=== PATIENT | female | born 2000 | race Caucasian/White ===

== ENCOUNTER 2023-01-26 01:39 | Inpatient (IN) ==
[2023-01-26] MEDS ORDERED: VANCOMYCIN CONSULT ACTIVE PRN (03:15)
[2023-01-26] MEDS ORDERED: VANCOMYCIN HCL 1,500 MG in SODIUM CHLORIDE 0.9% 500 ML IV ONE (03:15)
[2023-01-26] MEDS ORDERED: PIPERACILLIN/TAZOBACTAM 4.5 GM/100 ML BAG IV ONE (03:15)
[2023-01-26 03:23] LABS: Basophils # (auto) 0.05 K/uL (0.00-0.20); Basophils % (auto) 0.6 %; Eosinophils # (auto) 0.36 K/uL (0.00-0.50); Eosinophils % (auto) 4.5 %; Hematocrit (blood only) 34.4 % (37.0-47.0); Hemoglobin 12.1 g/dl (12.0-16.0); Immature Granulocytes # (auto) 0.06 K/uL (0.01-0.20); Immature Granulocytes % (auto) 0.8 %; Lymphocytes # (auto) 3.59 K/uL (1.20-3.40); Lymphocytes % (auto) 45.1 %; Mean Corpuscular Hemoglobin 30.1 pg (25.0-34.0); Mean Corpuscular Hgb Conc 35.2 g/dL (32.0-36.0); Mean Corpuscular Volume 85.6 fL (80.0-100.0); Mean Platelet Volume 10.2 fL (9.4-12.4); Monocytes # (auto) 0.71 K/uL (0.11-0.59); Monocytes % (auto) 8.9 %; Neutrophils # (auto) 3.19 K/uL (1.40-6.50); Neutrophils % (auto) 40.1 %; Platelet Count 322 K/uL (130-400); RDW Coefficient of Variation 13.2 % (11.5-14.5); RDW Standard Deviation 41.4 fL (36.4-46.3); Red Blood Count 4.02 M/uL (4.20-5.40); White Blood Count 7.96 K/ul (4.8-10.8)
[2023-01-26 03:42] LABS: Albumin Level 3.2 gm/dl (3.4-5.0); BUN Creatinine Ratio 8.8 (10-20); Bilirubin Direct 0.1 mg/dl (0-0.2); Bilirubin,Total 0.4 mg/dl (0.2-1.0); Calcium 8.7 mg/dl (8.6-10.3); Creatinine Clr Calc Pharmacy 127.3 ml/min; Est GFR (African American) 144.9 ml/min; Magnesium 2.1 mg/dl (1.7-2.4); Potassium 3.5 mmol/L (3.5-5.1); Total Protein 6.1 gm/dl (6.0-8.3)
[2023-01-26 03:47] LABS: Procalcitonin 0.17 ng/ml (0-0.5)
[2023-01-26 03:53] LABS: Lyme Ab IgG w/WB Rflx Negative (Negative); Lyme Ab IgM w/WB Rflx Negative (Negative)
[2023-01-26] MEDS ORDERED: OPTIRAY 320 100ml IV ONE (04:00)
[2023-01-26 04:39] LABS: Base Excess VBG -2.6 mEq/L; HCO3 VBG 20 mmol/L; Oxygen Saturation VBG 90.3 %; PCO2 VBG 29 mmHg (38-50); PO2 VBG 56 mmHg; pH VBG 7.45 (7.36-7.41)
--- NOTE | 2023-01-26 04:46 | History & Physical Report ---
Date of Service January 26, 2023 Assessment & Plan (1) Abscess of chest wall: Plan: 22 year old female w/ past history of T1 DM admitted for chest wall abscess persistent after 2 oral antibiotics. Abscess of chest wall: -CT w/ evidence of air and soft tissue edema at the R lateral chest wall. -WBC normal, vitals stable. -Patient failed 2 oral antibiotics for abscess at this time. -Given Vancomycin and Zosyn in the ER. -Culture of the pus from wound taken, will await culture results for narrowing antibiotic choice. -General surgery consulted, will appreciate recommendations. -Wound care nurse consulted. -Admit to med/surg B/l leg swelling: -Leg swelling after last admission s/p 5L fluid rehydration. -Most likely due to lymph edema. -CT A&P shows bladder measuring almost 10cm in size, patient lymphedema may be from compression from bladder. -Continue to monitor output, no need for fluid or diuresis at this time. -Will order BRYAN stockings T1DM: -Not compliant at times with insulin. -Glucose 395, anion gap 12. -She is on 40U long acting insulin at home. Continue while at the hospital. -SSI. -ACHS checks. Hyponatremia: -Sodium 131 on admission. -Corrected sodium 136-138. -Continue to monitor as glucose returns to normal range. F/E/N/GI: T1DM carb counter DVT Prophylaxis: Patient young, mobile, chemoprophylaxis not needed. Code status: Full Dispo: Med/surg. (2) Diabetes mellitus type 1: (3) Hyponatremia: (4) Localized swelling of both lower legs: History of Present Illness Chief Complaint: swelling, abscess Primary Care Provider: [facility] Nafisa is a 22 year old female w/ PmHx of T1DM coming to the ER for swelling of her lower extremities. Patient was previously here on Saturday for rhinovirus induced diarrhea as well as DKA. She also had this area of what was thought to be cellulitis for which she already had doxycycline treatment course. Over the course of the day her anion gap closed and she was sent home with Bactrim DS for 7 days for treatment of the affected area of skin infection. She states that her symptoms had mostly gone away except for persistence of the skin infection. She also had swelling in the lower extremities that developed after discharge. The swelling subsided but earlier today she had re-swelling of the lower extremities that made her worried. She had went out drinking prior to coming to the hospital. She denies any fevers, chills, shortness of breath, chest pain, urinary or bowel symptoms. Of note patient stated that the area of the chest wall abscess was at first a pimple in that area that she popped and had developed into what it is now. The area of skin infection did not get better after doxycycline nor Bactrim and has only gotten worse. Her partner in the room stated when the abscess was drained earlier the color of the pus was orange- whitish tinged. In the ER the site of skin infection was poked with a needle with pus and air leaking out, culture was taken. She was started on Vancomycin and Zosyn for the presumed abscess. CBC unremarkable, Na 131, anion gap 12, glucose 395, lactate 3.6, BNP 191, albumin 3.2. CT chest and abd/pelvis without read back yet but ~2.4cm pocket of air at the R lateral chest wall mid-axillary around the level of T7. CT A&P notable for bladder measuring almost 10cm in size. Allergies Allergy/AdvReac Type Severity Reaction Status Date / Time No Known Allergies Allergy Unverified 01/19/23 23:06 Home Medications Medication Instructions Recorded Confirmed Type insulin glargine 100 unit/mL 40 unit subcut HS 01/19/23 01/26/23 History subcutaneous solution (Lantus U-100 Insulin) insulin lispro 100 unit/mL 1 sliding scale dose subcut ACHS 01/19/23 01/26/23 History subcutaneous solution (Humalog U-100 Insulin) sulfamethoxazole 800 1 tab PO BID #14 tabs 01/20/23 01/26/23 Rx mg-trimethoprim 160 mg tablet (Bactrim DS) Past Med/Surg History Medical History Diabetes mellitus type 1 Surgical History No significant past surgical history Social History Smoking Status: Never smoker Second Hand Exposure: No; Do You Dip or Chew Tobacco: No; Tobacco Cessation Education Requested by Patient: No Hx Alcohol Use: Yes Alcohol type: beer, wine and hard liquor Hx Substance Use: No Preferred Language: Sinhala Communication Ability: Effective Ingot Stripper Required: No Beliefs That Will Affect Care: None Current Living Situation: Other Current Living Situation Comment: Roomates Other Information That Helps Us Care for You: No Feels Safe at Home: Yes Safety Concerns: Feels Safe At This Time Assistive Devices: None Review of Systems Review of Systems: as per HPI. Physical Exam 2 Constitutional: WD/WN, vitals as above Eyes: PERRL, conjunctivae normal, anicteric sclerae Respiratory: normal respiratory effort, lungs clear to auscultation Cardiovascular: Rate/Rhythm: regular rate and regular rhythm Heart Sounds: normal S1, normal S2 and + murmur (I/ holosystolic murmur best heard at left sternal border) Lower extremity non-pitting edema from the feet to the hips bilaterally. Chest (Breasts): Additional Comments: Area of 2x2 gauze light red to orange in color with adhesive on top overlying the R lateral midaxillary chest. Gastrointestinal (Abdomen): normal bowel sounds, soft, nontender, no hepatosplenomegaly Psychiatric: A+Ox3, euthymic affect Results & Data Results & Data Vital Signs (Past 12 Hours) Vital Signs Temp Pulse Resp BP Pulse Ox O2 Del Method 01/26/23 04:11 95 H 01/26/23 04:09 123/79 01/26/23 04:09 93 H 18 98 Room Air 01/26/23 01:46 36.9 C 98 H 20 148/93 H 98 Room Air Supervising Physician Co-Signing Physician Notes Attending addendum: I have physically seen this patient, have supervised the medical residents activities, and agree with the H&P unless as otherwise noted. Assessment and Plan: Abscess of chest wall- Status post drainage in the ED Follow culture and sensitivity Vancomycin IV per pharmacokinetic monitoring Zosyn 4.5 g IV every 8 hours Consult wound care nurse Consult general surgery Admit to medical surgical bed Diabetes mellitus- Glucose 395 on admission with anion gap 12 Noncompliant with insulin regimen Continue long-acting insulin and SSI as noted Bilateral lower extremity swelling- Differential including but not limited to: Lymphedema, compression of venous circulation in the pelvis, Partial obstruction of IVC Could consider ultrasound of lower abdomen and pelvis to assess IVC and iliac veins circulation if persistent Resident Activity Tracking Resident Involvement: Resident Care Provided Care Provided: Adult Hospital Medicine
--- NOTE | 2023-01-26 05:07 | Emergency Department Note ---
History of Present Illness General Chief complaint: Swelling/Edema to Extremity Stated complaint: SWOLLEN LEGS Time Seen by Provider: 01/26/23 02:15 History of Present Illness This is a 22-year-old female presenting to the emergency department for evaluation of bilateral lower extremity edema. The patient is a type I diabetic and was admitted to this facility 6 days ago for DKA/rhinovirus infection. Patient was given 5 L of normal saline during her hospitalization and was discharged home after her sugar normalized. Patient's weight at discharge was 65.4 kg. Patient states that the following few days she noticed that she was edematous and did urinate regularly. She states that her sugar has been well controlled, and that her leg edema decreased back to normal. Patient was feeling good enough that she went out with friends and drank alcohol this evening. When the patient got back home she went to change her clothes, and noticed that she was swollen again. On arrival to the ER her weight is 72.9 kg, a 7.5 kg increase in 5 days. The patient additionally has a lump on her left side chest wall. She has had this for some time, roughly 1 month, and has completed both doxycycline and Bactrim. This continues to increase in size and continues to cause her pain. She has not had fevers or chills. No chest pain other than directly where the lump on her chest is. She is otherwise eating and drinking and normal. She rates her discomfort a 7/10. Home Medications Medication Instructions Recorded Confirmed Type insulin glargine 100 unit/mL 40 unit subcut HS 01/19/23 01/26/23 History subcutaneous solution (Lantus U-100 Insulin) insulin lispro 100 unit/mL 1 sliding scale dose subcut ACHS 01/19/23 01/26/23 History subcutaneous solution (Humalog U-100 Insulin) sulfamethoxazole 800 1 tab PO BID #14 tabs 01/20/23 01/26/23 Rx mg-trimethoprim 160 mg tablet (Bactrim DS) Allergies Allergy/AdvReac Type Severity Reaction Status Date / Time No Known Allergies Allergy Unverified 01/19/23 23:06 Past Med/Surg History Medical History Diabetes mellitus type 1 Surgical History No significant past surgical history Social History Smoking Status: Never smoker Second Hand Exposure: No; Do You Dip or Chew Tobacco: No; Tobacco Cessation Education Requested by Patient: No Hx Alcohol Use: Yes Alcohol type: beer, wine and hard liquor Hx Substance Use: No Preferred Language: Uzbek Communication Ability: Effective Transportation Analyst Required: No Beliefs That Will Affect Care: None Current Living Situation: Other Current Living Situation Comment: Roomates Other Information That Helps Us Care for You: No Feels Safe at Home: Yes Safety Concerns: Feels Safe At This Time Assistive Devices: None Review of Systems A total of 10 systems reviewed and were otherwise negative Physical Exam Vital Signs Vital Signs - 24 hr 01/26/23 01:46 01/26/23 04:09 01/26/23 04:09 Temperature 36.9 C Temperature Source Temporal Artery Scan Pulse Rate 98 H 93 H Pulse Rhythm Regular Regular Pulse Strength Normal Respiratory Rate 20 18 Respiratory Effort / Characteristics Non-Labored Spontaneous Respiratory Depth Normal Blood Pressure 148/93 H 123/79 Blood Pressure Mean 111 93 Blood Pressure Position Sitting Pulse Oximetry 98 98 Oxygen Delivery Method Room Air Room Air Sepsis Recent Fever Within 48 Hours No Sepsis New/Unexplained Change in Mental Status N/A Sepsis Action Taken by Nursing No Action Required 01/26/23 04:11 Temperature Temperature Source Pulse Rate 95 H Pulse Rhythm Pulse Strength Respiratory Rate Respiratory Effort / Characteristics Respiratory Depth Blood Pressure Blood Pressure Mean Blood Pressure Position Pulse Oximetry Oxygen Delivery Method Sepsis Recent Fever Within 48 Hours Sepsis New/Unexplained Change in Mental Status Sepsis Action Taken by Nursing VITALS: Vitals are noted on the nurse's note and reviewed by myself. Vital signs stable. GENERAL: Well-developed, well-nourished, white female, who is pleasant and cooperative. HEAD: Normocephalic atraumatic. HEART: Regular rate and rhythm without murmurs gallops or rubs. LUNGS: Clear to auscultation bilaterally without wheezes, rales or rhonchi. No retractions or accessory muscle use. CHEST WALL: There is a roughly 4 x 3 ovoid area on the left side lateral chest wall consistent with abscess. This is roughly at the nipple line, but very lateral. This is not distinctly axillary or breast, but seems to be more chest wall in location. Area is tender on palpation. ABDOMEN: Positive normal bowel sounds x 4. Soft, nontender, without masses or organomegaly. No guarding or rebound tenderness. MUSCULOSKELETAL: Full range of motion in all extremities. No lower extremity edema noted. This is not pitting. NEURO: Patient was alert and oriented to person place and time. CN II through XII grossly intact. Procedures Abscess I/D Site: chest (Left lateral chest wall) Side (if applicable): left Sedation/analgesia: none Technique: other (Deroofing with 18-gauge needle) Amount of fluid expressed (mL): 75 Irrigation: No Packing used?: none Complications: other (Large amount of purulent material with AIR from abscess) Course Administered Medications Acetaminophen (Acetaminophen 325 Mg Tab) 650 mg PO Q4H PRN PRN Reason: pain/fever Stop: 02/25/23 09:52 Last Admin: 01/26/23 16:51 Dose: 650 mg Documented By: CEF Piperacillin Sod/Tazobactam (Sod 4.5 gm/ Dextrose) 100 mls @ 25 mls/hr IV Q8H [facility]; Protocol Stop: 02/02/23 10:29 Last Admin: 01/26/23 18:16 Dose: 25 mls/hr Documented By: Infusion: 01/26/23 15:24 Dose: 0 mls/hr Documented By: Admin: 01/26/23 11:50 Dose: 25 mls/hr Documented By: CEF Vancomycin HCl 1,000 mg/ (Sodium Chloride) 270 mls @ 200 mls/hr IV Q8H DONI Stop: 02/05/23 12:59 Last Infusion: 01/26/23 15:04 Dose: 0 mls/hr Documented By: Admin: 01/26/23 13:49 Dose: 200 mls/hr Documented By: CEF Insulin Aspart (Insulin Aspart Per Unit Charge) 0 units SC ACHS DONI Stop: 02/25/23 09:52 Last Admin: 01/26/23 17:03 Dose: 9 units Documented By: CEF Co-signed By: [facility] Admin: 01/26/23 12:19 Dose: 9 units Documented By: CEF Co-signed By: TYRONE Admin: 01/26/23 12:07 Dose: Not Given Documented By: CEF Co-signed By: SMMajo Discontinued Medications Vancomycin HCl 1,500 mg/ (Sodium Chloride) 530 mls @ 200 mls/hr IV NOW ONE Stop: 01/26/23 05:53 Last Admin: 01/26/23 04:44 Dose: 200 mls/hr Documented By: SEBAS Piperacillin Sod/Tazobactam Sod (Zosyn) 4.5 gm in 100 mls @ 200 mls/hr IV NOW ONE Stop: 01/26/23 03:44 Last Infusion: 01/26/23 05:19 Dose: 0 mls/hr Documented By: Admin: 01/26/23 04:47 Dose: 200 mls/hr Documented By: SEBAS Influenza Virus Vaccine Quadrival (Influenza Virus Quadrivalent Vaccine (Iiv4) 0.5 Ml Syr) 0.5 ml IM .ONCE ONE Stop: 01/26/23 10:20 Last Admin: 01/26/23 12:20 Dose: 0.5 ml Documented By: CEF Ioversol (Optiray 320 100ml) 87 ml IV ONCE ONE Stop: 01/26/23 04:01 Last Admin: 01/26/23 04:01 Dose: 87 ml Documented By: MOLLY Medical Decision Making Differential Diagnosis Differential diagnosis includes: Etiologies such as hypervolemia, sepsis, Sirs, cellulitis, abscess, osteomyelitis, MRSA infection, DVT, necrotizing fasciitis, dermatitis, drug eruption, as well as others were entertained Laboratory Data 01/26/23 02:57 01/26/23 02:57 Lab Results 01/26/23 01/26/23 01/26/23 Range/Units 02:57 02:57 02:57 WBC 7.96 (4.8-10.8) K/ul RBC 4.02 L (4.20-5.40) M/uL Hgb 12.1 (12.0-16.0) g/dl Hct 34.4 L (37.0-47.0) % MCV 85.6 (80.0-100.0) fL MCH 30.1 (25.0-34.0) pg MCHC 35.2 (32.0-36.0) g/dL RDW Std Deviation 41.4 (36.4-46.3) fL RDW Coeff of Shayla 13.2 (11.5-14.5) % Plt Count 322 (130-400) K/uL MPV 10.2 (9.4-12.4) fL Immature Gran % (Auto) 0.8 % Neut % (Auto) 40.1 % Lymph % (Auto) 45.1 % Gila % (Auto) 8.9 % Eos % (Auto) 4.5 % Baso % (Auto) 0.6 % Neut # (Auto) 3.19 (1.40-6.50) K/uL Lymph # (Auto) 3.59 H (1.20-3.40) K/uL Gila # (Auto) 0.71 H (0.11-0.59) K/uL Eos # (Auto) 0.36 (0.00-0.50) K/uL Baso # (Auto) 0.05 (0.00-0.20) K/uL Immature Gran # (Auto) 0.06 (0.01-0.20) K/uL VBG pH (7.36-7.41) VBG pCO2 (38-50) mmHg VBG pO2 mmHg VBG HCO3 mmol/L VBG O2 Saturation % VBG Base Excess mEq/L Sodium 131 L (136-145) mmol/L Potassium 3.5 (3.5-5.1) mmol/L Chloride 98 (98-107) mmol/L Carbon Dioxide 21 (21-32) mmol/L Anion Gap 12 H (3-11) BUN 6 (6-23) mg/dl Creatinine 0.68 (0.6-1.2) mg/dl Est Cr Clr Drug Dosing 127.3 ml/min Est GFR ( Amer) 144.9 ml/min Est GFR (Non-Af Amer) 125.0 ml/min BUN/Creatinine Ratio 8.8 L (10-20) Glucose 395 H* (70-99(Fasting)) mg/dl Lactate 3.6 H* (0.4-2.0) mmol/L Calcium 8.7 (8.6-10.3) mg/dl Magnesium 2.1 (1.7-2.4) mg/dl Total Bilirubin 0.4 (0.2-1.0) mg/dl Direct Bilirubin 0.1 (0-0.2) mg/dl AST 23 (13-39) U/L ALT 17 (7-52) U/L Alkaline Phosphatase 81 (34-104) U/L B-Natriuretic Peptide (0-100) pg/ml Total Protein 6.1 (6.0-8.3) gm/dl Albumin 3.2 L (3.4-5.0) gm/dl Procalcitonin (0-0.5) ng/ml Ethyl Alcohol mg/dL (<10.0) mg/dl Lyme Disease IgG Ab (Negative) Lyme Disease IgM Ab (Negative) 01/26/23 01/26/23 01/26/23 Range/Units 02:57 02:57 04:20 WBC (4.8-10.8) K/ul RBC (4.20-5.40) M/uL Hgb (12.0-16.0) g/dl Hct (37.0-47.0) % MCV (80.0-100.0) fL MCH (25.0-34.0) pg MCHC (32.0-36.0) g/dL RDW Std Deviation (36.4-46.3) fL RDW Coeff of Shayla (11.5-14.5) % Plt Count (130-400) K/uL MPV (9.4-12.4) fL Immature Gran % (Auto) % Neut % (Auto) % Lymph % (Auto) % Gila % (Auto) % Eos % (Auto) % Baso % (Auto) % Neut # (Auto) (1.40-6.50) K/uL Lymph # (Auto) (1.20-3.40) K/uL Gila # (Auto) (0.11-0.59) K/uL Eos # (Auto) (0.00-0.50) K/uL Baso # (Auto) (0.00-0.20) K/uL Immature Gran # (Auto) (0.01-0.20) K/uL VBG pH 7.45 H (7.36-7.41) VBG pCO2 29 L (38-50) mmHg VBG pO2 56 mmHg VBG HCO3 20 mmol/L VBG O2 Saturation 90.3 % VBG Base Excess -2.6 mEq/L Sodium (136-145) mmol/L Potassium (3.5-5.1) mmol/L Chloride (98-107) mmol/L Carbon Dioxide (21-32) mmol/L Anion Gap (3-11) BUN (6-23) mg/dl Creatinine (0.6-1.2) mg/dl Est Cr Clr Drug Dosing ml/min Est GFR ( Amer) ml/min Est GFR (Non-Af Amer) ml/min BUN/Creatinine Ratio (10-20) Glucose (70-99(Fasting)) mg/dl Lactate (0.4-2.0) mmol/L Calcium (8.6-10.3) mg/dl Magnesium (1.7-2.4) mg/dl Total Bilirubin (0.2-1.0) mg/dl Direct Bilirubin (0-0.2) mg/dl AST (13-39) U/L ALT (7-52) U/L Alkaline Phosphatase (34-104) U/L B-Natriuretic Peptide 191 H (0-100) pg/ml Total Protein (6.0-8.3) gm/dl Albumin (3.4-5.0) gm/dl Procalcitonin 0.17 (0-0.5) ng/ml Ethyl Alcohol mg/dL (<10.0) mg/dl Lyme Disease IgG Ab Negative (Negative) Lyme Disease IgM Ab Negative (Negative) 01/26/23 Range/Units 04:20 WBC (4.8-10.8) K/ul RBC (4.20-5.40) M/uL Hgb (12.0-16.0) g/dl Hct (37.0-47.0) % MCV (80.0-100.0) fL MCH (25.0-34.0) pg MCHC (32.0-36.0) g/dL RDW Std Deviation (36.4-46.3) fL RDW Coeff of Shayla (11.5-14.5) % Plt Count (130-400) K/uL MPV (9.4-12.4) fL Immature Gran % (Auto) % Neut % (Auto) % Lymph % (Auto) % Gila % (Auto) % Eos % (Auto) % Baso % (Auto) % Neut # (Auto) (1.40-6.50) K/uL Lymph # (Auto) (1.20-3.40) K/uL Gila # (Auto) (0.11-0.59) K/uL Eos # (Auto) (0.00-0.50) K/uL Baso # (Auto) (0.00-0.20) K/uL Immature Gran # (Auto) (0.01-0.20) K/uL VBG pH (7.36-7.41) VBG pCO2 (38-50) mmHg VBG pO2 mmHg VBG HCO3 mmol/L VBG O2 Saturation % VBG Base Excess mEq/L Sodium (136-145) mmol/L Potassium (3.5-5.1) mmol/L Chloride (98-107) mmol/L Carbon Dioxide (21-32) mmol/L Anion Gap (3-11) BUN (6-23) mg/dl Creatinine (0.6-1.2) mg/dl Est Cr Clr Drug Dosing ml/min Est GFR ( Amer) ml/min Est GFR (Non-Af Amer) ml/min BUN/Creatinine Ratio (10-20) Glucose (70-99(Fasting)) mg/dl Lactate (0.4-2.0) mmol/L Calcium (8.6-10.3) mg/dl Magnesium (1.7-2.4) mg/dl Total Bilirubin (0.2-1.0) mg/dl Direct Bilirubin (0-0.2) mg/dl AST (13-39) U/L ALT (7-52) U/L Alkaline Phosphatase (34-104) U/L B-Natriuretic Peptide (0-100) pg/ml Total Protein (6.0-8.3) gm/dl Albumin (3.4-5.0) gm/dl Procalcitonin (0-0.5) ng/ml Ethyl Alcohol mg/dL 19.8 H (<10.0) mg/dl Lyme Disease IgG Ab (Negative) Lyme Disease IgM Ab (Negative) Imaging Data Radiologist's Impression: Abdomen/Pelvis CT 01/26/23 03:14 CT abd pelvis IV con only CLINICAL HISTORY: b/l lower extremity edema TECHNIQUE: Helical axial images of the abdomen and pelvis were obtained and displayed. Automated dose lowering techniques and/or adjustment according to patient size were utilized for this exam. This exam was performed with intravenous contrast. COMPARISON: None available at the time of this dictation. FINDINGS: Lower chest: For findings above the diaphragm, please see CT chest performed same day. Liver: Unremarkable. No focal lesions are seen. Gallbladder and biliary tree: No calcified gallstones. Normal caliber wall. No intra- or extrahepatic biliary ductal dilation. Pancreas: Unremarkable, no focal lesions. Spleen: Unremarkable. Adrenals: Unremarkable. Kidneys and ureters: Unremarkable. Bladder: Unremarkable. Reproductive organs: Unremarkable. Bowel: Unremarkable. Lymph nodes Retroperitoneal: Unremarkable. Pelvic: Unremarkable. Mesenteric: Unremarkable. Peritoneum: Normal. Vessels: Unremarkable. Abdominal wall: Mild soft tissue edema is seen in the gluteal and thigh regions. Bones: Unremarkable. IMPRESSION: Mild soft tissue edema in the gluteal and thigh regions. Otherwise no acute abnormality is seen. ACT 112: Negative or not required by law. Electronically signed by: Gustabo Fay M.D. 01/26/2023 8:34 AM Chest X-Ray 01/26/23 03:15 XR chest 1V portable CLINICAL HISTORY: sepsis TECHNIQUE: Single frontal radiograph of the chest was obtained. Comparison: Comparison is made to chest radiograph 01/19/2023 FINDINGS: No lines and tubes are seen. The cardiomediastinal silhouette is normal. The lungs are clear. No evidence of pleural effusion or pneumothorax. IMPRESSION: No acute abnormalities and in particular no radiographic evidence of pneumonia. ACT 112: Negative or not required by law. Electronically signed by: Gustabo Fay M.D. 01/26/2023 6:[address] 01/26/23 03:30 CT chest diagnostic w con CLINICAL HISTORY: Left lat chest wall abscess s/p drained TECHNIQUE: Multidetector row helical CT of the chest was performed with intravenous contrast. Coronal and sagittal reformations were obtained. Automated dose lowering techniques and/or adjustment according to patient size were utilized for this exam. CT DOSE: 1236.62 mGy.cm Comparison: None available at the time of this dictation. FINDINGS: Lungs and pleura: Normal. Heart and pericardium: Heart size is normal. No pericardial effusion. Vessels: Unremarkable. Mediastinum and antonio: Unremarkable. Chest wall and lower neck: There is a 3.5 cm gas and fluid collection in the superficial left chest wall compatible with abscess. Abdomen: For findings below the diaphragm, please refer to CT of the abdomen dated the same. Bones: Degenerative changes in the thoracic spine. IMPRESSION: Left lateral chest gas and fluid collection compatible with abscess. Otherwise unremarkable. ACT 112: Negative or not required by law. Electronically signed by: Gustabo Fay M.D. 01/26/2023 8:11 AM ECG Data Attestation: I personally reviewed and interpreted this ECG as follows: Indication: + chest pain Additional Comments: Normal sinus rhythm @[address] elevation No previous ECGs available MDM Narrative Physical exam and history were performed. Nursing notes, EMR, and Medication List were personally reviewed. No social concerns were identified as barriers to patients care. Patient appears to have lower extremity edema bringing her to the ER. On examination she does have some nonpitting bilateral lower extremity edema. No obvious palpable cord identified on physical examination. The edema is the patient's primary concern, and based on her discharge weight from the hospital and her weight today, she has gained 7.5 kg in 5 days. This is likely all fluid retention. The patient is slightly tachycardic based on vitals. Otherwise her exam does reveal an abscess on the left side chest wall. She had a bedside ultrasound performed prior to her admission, that did not show any abscess, however today this is distinctly abscessed. I did discuss options of care with the patient at bedside. I did cleanse the abscess area with alcohol, and did deep groove the central plug with an 18-gauge needle. Upon removing the central plug, which was roughly 2.5 cm itself, a tremendous amount of purulent material was discharged from the new opening. Controlled with 4 x 4's and multiple chucks. Towards the end of the purulent drainage, which was cultured, there was a surprising amount of gas and air that was also expressed from the area. The amount of purulence and gas was much higher than my expectation. There is clinical concern for possible gas-forming infection, or possible communication into the intrathoracic cavity. IV access was established and labs were obtained. Case was discussed with my attending physician, Dr. Rizo. We did elect to perform CT scan of the chest to better differentiate her infection, as well as CT scan of the abdomen and pelvis to determine if this could be causing her lower extremity edema. Patient's blood work is as above and was reviewed. She does not have a sig nificantly elevated white blood cell count, gross anemia, bandemia, or significant electrolyte imbalance. Transaminases are not diagnostic. Patient's lactic is unfortunately elevated at 3.6 and blood cultures are pending. BNP is also elevated at 191, suggesting some amount of heart failure/fluid overload. Overall the patient does not appear well for discharge. I did speak with the hospitalist, Dr. Bowers, and we will hold fluids at the moment as the patient appears to be fluid overloaded. She was given vancomycin and Zosyn here in the ER. Please see the hospitalist dictation for further patient course, plan, and disposition. The chart was completed utilizing [employer] Speech Voice Recognition Software. Grammatical errors, random word insertions, pronoun errors, and incomplete sentences are an occasional consequence of this system due to software limitations, ambient noise, and hardware issues. Any formal questions or concerns about the content, text, or information contained within the body of this dictation should be directly addressed to the provider for clarification. . Impression & Plan Sepsis, Abscess of chest wall, Hyperglycemia due to type 1 diabetes mellitus Discharge Plan Visit Data Chief Complaint: Swelling/Edema to Extremity Stated Complaint: SWOLLEN LEGS ED Provider: Gladys Rizo ED Midlevel Provider: Landry Laird Discharge Problem: Sepsis, Abscess of chest wall, Hyperglycemia due to type 1 diabetes mellitus Patient Disposition: Admitted As Inpatient Discharge Instructions Interventions: ED Discharge Assessment Last Done: 01/26/23 09:30
--- NOTE | 2023-01-26 07:05 | Hospitalist Progress Note ---
Date of Service January 26, 2023 Assessment & Plan (1) Abscess of chest wall: (2) Diabetes mellitus type 1: (3) Hyponatremia: (4) Localized swelling of both lower legs: Plan 22 year old female w/ past history of T1 DM admitted for chest wall abscess persistent after 2 oral antibiotics (Doxycycline and Bactrim), and bilateral LE swelling. Abscess of chest wall -CT showing left lateral chest gas and fluid collection that is compatible with an abscess. -WBC normal, vitals stable. -General surgery consulted: Abscess has been drained and it is unlikely that further drainage is necessary Agree with continuing Zosyn -Continue IV Zosyn for broad coverage until culture and sensitivities come back, as well as Vancomycin for MRSA coverage since her abscess may have come as a consequence of her popping a pimple in that same area. May change abx choice after wound culture sensitivities return If polymicrobial or if current abx choice is appropriate, consider discharging patient on oral Augmentin -Wound care nurse consulted. B/l leg swelling: -Leg swelling after last admission s/p 5L fluid rehydration. Current swelling most likely due to lymphedema as a result of this past fluid administration -Continue to monitor output, no need for fluid or diuresis at this time. -BRYAN stockings ordered T1DM: - Glucose this am 395, anion gap 12. Hgb A1c ordered -- pending - Patient with adequate basic knowledge about dosing her home insulin, but may have some inadequate postprandial dosing Not compliant at times with insulin. - Patient following maximum home BSG measurement of 240 as it was what was told to her when she was younger Discussed decreasing that maximum and dose her insulin to stay within the range of 100-180 - She is on 40U long acting insulin at home. Continue while at the hospital. - SSI. - ACHS checks. Hyponatremia: - Sodium 131 on admission. - Corrected sodium 136-138. - Continue to monitor as glucose returns to normal range. F/E/N/GI: T1DM carb counter DVT Prophylaxis: Patient young, mobile, chemoprophylaxis not needed. Code status: Full Dispo: Med/surg; may discharge if clinically stable once cultures are back to ensure adequate antibiotic coverage for her abscess Supervising Physician Co-Signing Physician Notes I personally examined the patient and verified all swann points of history and exam, discussed case, and agree with decision making with Dr Ceron feeling better side lesion still hurts but not as bad still. leg swelling discussed. extensive discussions on DM and reason for control vitals noted nad heent nc at mmm L flank lesion with exudate easily expressible laundry machine tender thick/indurated but no fluctuance. b/l LE puffy soft edema flank abscess - continue abx pending culture. keep open/draining. appreciate surgical eval. edema - IV fluids spilling out, then salty food intake uncontrolled DM1 - extensive discussions, expressed good understanding and appreciation. Julito Skelton is a 22 y/o female with PMHx of Type 1 DM with recent admission for DKA last Saturday (01/19/23) who was admitted today due to right lateral chest wall abscess that has persisted despite 2 oral antibiotics (Doxycycline and Bactrim), and bilateral LE swelling. Today she was evaluated at bedside and found AAOx3, afebrile, non-toxic, calm, and in no acute distress. She felt some residual discomfort on her left side where they partially drained her lateral chest wall abscess, as well as feeling the swelling in her bilateral LE. However, she states that her LE swelling has improved compared to how it was yesterday. She denies having chest pain, SOB, JARRETT, fevers, chills, N/V/C/D, weakness, malaise, or any other symptom. Review of Systems Review of Systems: As per HPI. Physical Exam Physical Exam: General: Alert. Oriented to person, time, and place. Afebrile. No acute distress. Eyes: pupils equal and reactive to light bilaterally, extraocular movements intact. Chest: bandage covering left lateral chest wall where drainage was performed in the ED, on evaluation, there is some drainage and some tenderness, but no significant erythema. Cardiac: Regular rate and rhythm, no murmurs/rubs/gallops. Respiratory: Clear to auscultation bilaterally a/p, no wheezes/rales/rhonchi. No increased work of breathing. Symmetrical chest rise. No respiratory distress. Abdomen: Soft, nontender, nondistended. Bowel sounds present. Lower Extremities: Bilateral lower extremity swelling without pitting. No deep calf pain. Gwen's negative bilaterally. Psych: Euthymic affect. Mood and affect congruence. Regular speech rate and content. Results & Data Results & Data Vital Signs (Past 12 Hours) Vital Signs Temp Pulse Resp BP Pulse Ox O2 Del Method 01/26/23 04:11 95 H 01/26/23 04:09 123/79 01/26/23 04:09 93 H 18 98 Room Air 01/26/23 01:46 36.9 C 98 H 20 148/93 H 98 Room Air Resident Activity Tracking Resident Involvement: Resident Care Provided Care Provided: Adult Hospital Medicine
--- NOTE | 2023-01-26 08:13 | CT Scan Report ---
CT chest diagnostic w con CLINICAL HISTORY: Left lat chest wall abscess s/p drained TECHNIQUE: Multidetector row helical CT of the chest was performed with intravenous contrast. Coronal and sagittal reformations were obtained. Automated dose lowering techniques and/or adjustment accord ing to patient size were utilized for this exam. CT DOSE: 1236.62 mGy.cm Comparison: None available at the time of this dictation. FINDINGS: Lungs and pleura: Normal. Heart and pericardium: Heart size is normal. No pericardial effusion. Vessels: Unremarkable. Mediastinum and antonio: Unremarkable. Chest wall and lower neck: There is a 3.5 cm gas and fluid collection in the superficial left chest w all compatible with abscess. Abdomen: For findings below the diaphragm, please refer to CT of the abdomen dated the same. Bones: Degenerative changes in the thoracic spine. IMPRESSION: Left lateral chest gas and fluid collection compatible with abscess. Otherwise unremarkable. ACT 112: Negative or not required by law. Electronically signed by: Gustabo Fay M.D. 01/26/2023 8:11 AM
--- NOTE | 2023-01-26 08:36 | CT Scan Report ---
CT abd pelvis IV con only CLINICAL HISTORY: b/l lower extremity edema TECHNIQUE: Helical axial images of the abdomen and pelvis were obtained and displayed. Automated dose lowering techniques and/or adjustment according to patient size were utilized for this exam. This e xam was performed with intravenous contrast. COMPARISON: None available at the time of this dictation. FINDINGS: Lower chest: For findings above the diaphragm, please see CT chest performed same day. Liver: Unremarkable. No focal lesions are seen. Gallbladder and biliary tree: No calcified gallstones. Normal caliber wall. No intra- or extrahepatic biliary ductal dilation. Pancreas: Unremarkable, no focal lesions. Spleen: Unremarkable. Adrenals: Unremarkable. Kidneys and ureters: Unremarkable. Bladder: Unremarkable. Reproductive organs: Unremarkable. Bowel: Unremarkable. Lymph nodes Retroperitoneal: Unremarkable. Pelvic: Unremarkable. Mesenteric: Unremarkable. Peritoneum: Normal. Vessels: Unremarkable. Abdominal wall: Mild soft tissue edema is seen in the gluteal and thigh regions. Bones: Unremarkable. IMPRESSION: Mild soft tissue edema in the gluteal and thigh regions. Otherwise no acute abnormality is seen. ACT 112: Negative or not required by law. Electronically signed by: Gustabo Fay M.D. 01/26/2023 8:34 AM
[2023-01-26] MEDS ORDERED: CARBOHYDRATES FOR HYPOGLYCEMIA PO PRN (09:53)
[2023-01-26] MEDS ORDERED: GLUCOSE 10 TAB/TUBE PO PRN (09:53)
[2023-01-26] MEDS ORDERED: ONDANSETRON INJ 2 MG/ML 2 ML VIAL IV PRN (09:53)
[2023-01-26] MEDS ORDERED: GLUCOSE 40% GEL 15 GM TUBE PO PRN (09:53)
[2023-01-26] MEDS ORDERED: GLUCAGON FOR INJ 1 MG VIAL SQ PRN (09:53)
[2023-01-26] MEDS ORDERED: POLYETHYLENE (MIRALAX) 17 GM PACK PO PRN (09:53)
[2023-01-26] MEDS ORDERED: DEXTROSE 50% 50 ML SYRINGE IV PRN (09:53)
[2023-01-26] MEDS ORDERED: INFLUENZA VIRUS QUADRIVALENT VACCINE (IIV4) 0.5 ML SYR IM ONE (10:19)
--- NOTE | 2023-01-26 11:41 | Operative Report ---
Post Operative Report Pre & Post Diagnosis Perforated viscus, perforated anterior gastric ulcer I identified the patient and participated in the time-out.: Yes Procedure Exploratory laparotomy with buttressed repair of anterior gastric ulcer, biopsy of gastric ulcer. Surgeon Kb Mancuso MD Labourers None Estimated Blood Loss 30 Findings Consistent with Post-Op Diagnosis Small subcentimeter perforated gastric ulcer on the anterior surface proximal to the pylorus Specimens Biopsy of gastric ulcer Drains Bryant drain left in the subhepatic space near the perforation Anesthesia Type General Complications None Indications This is a 22-year-old female who came into the ED with complaints of abdominal pain. She was ambulatory with vital signs stable. She was sent to the CT scanner and subsequent developed some more severe abdominal pain. Her heart rate her heart rate was elevated. CT scan showed a large amount of free air and some fluid in the pelvis consistent with perforated viscus. On exam she had peritoneal signs we explained the details and recommended exploratory lapa rotomy. She understands the risk of possible ostomy, bleed, reoperation, and prolonged ileus. She understands this and wishes to proceed. Description of Procedure Patient was taken to the OR underwent excellent general endotracheal anesthesia. Her abdomen is prepped and draped normal sterile fashion. A midline incision was made from her xiphoid down to just below her umbilicus. Peritoneal cavity was entered sharply. There was a large amount of turbid fluid which was encountered. Retraction was placed so that her duodenum was identified. There was no obvious perforation aand the duodenum was mobilized but abnormalities were noted. Turbid fluid was coming from proximal area. [place] clamps were then used to retract the stomach inferiorly. There was an obvious subcentimeter perforation on the anterior surface of the stomach just proximal to the pylorus. Once this was identified and the ulcer was excised sharply. This was sent for pathologic evaluation. This left about a centimeter and a half hole which was closed with interrupted silk sutures. The sutures were then used to place a piece of omentum along the repair and secured a buttressed repair. No other abnormalities were noted in the abdomen. A liter of warm saline was then used to irrigate and suctioned it clear. A Bryant drain was brought through a stab incision in the right abdominal wall and laid along the subhepatic space near the buttress repair. An NG tube was manipulated you with anesthesia's help into the body of the stomach. The fascia was then closed with a running PDS suture. 1% lidocaine was used to create a local field block in the skin and the fascia. The skin was then closed with rocco. The drain was secured with a nylon suture. She tolerated procedure well without any complications. She will be sent to the postop recovery period of observation. She then will be sent for for the rest of her care. I attest to the content of the Intraoperative Record and any orders documented therein. Any exceptions are noted below.
[2023-01-26] MEDS: PIPERACILLIN/TAZOBACTAM 4.5 GM in DEXTROSE 5% MINI-B 100 ML IV SCH ×2 (11:50→18:16)
[2023-01-26] MEDS: INSULIN ASPART PER UNIT CHARGE SC SCH ×4 (12:07→21:08)
--- NOTE | 2023-01-26 12:19 | Surgery Consultation ---
Date of Consultation January 26, 2023 Assessment & Plan (1) Abscess of chest wall: drained IV zosyn will follow but doubt needs further drainage Present on Admission?: Yes History of Present Illness Attending Physician: Aditya Gonzalez DO History of Present Illness This is a 22 y/o female with Type 1 DM with recent admission for DKA last (01/19/23) who was admitted with a right lateral chest wall abscess. It was drained in ED. She initially treated the infected area with oral antibiotics (Doxycycline and Bactrim). Currently on zosyn. Allergies Allergy/AdvReac Type Severity Reaction Status Date / Time No Known Allergies Allergy Unverified 01/19/23 23:06 Home Medications Medication Instructions Recorded Confirmed Type insulin glargine 100 unit/mL 40 unit subcut HS 01/19/23 01/26/23 History subcutaneous solution (Lantus U-100 Insulin) insulin lispro 100 unit/mL 1 sliding scale dose subcut ACHS 01/19/23 01/26/23 History subcutaneous solution (Humalog U-100 Insulin) sulfamethoxazole 800 1 tab PO BID #14 tabs 01/20/23 01/26/23 Rx mg-trimethoprim 160 mg tablet (Bactrim DS) Patient History Medical History Diabetes mellitus type 1 Surgical History No significant past surgical history Social History Smoking Status: Never smoker Second Hand Exposure: No; Do You Dip or Chew Tobacco: No; Tobacco Cessation Education Requested by Patient: No Hx Alcohol Use: Yes Alcohol type: beer, wine and hard liquor Hx Substance Use: No Preferred Language: Yakut Communication Ability: Effective Template Cutter Required: No Beliefs That Will Affect Care: None Current Living Situation: Other Current Living Situation Comment: Roomates Other Information That Helps Us Care for You: No Feels Safe at Home: Yes Safety Concerns: Feels Safe At This Time Assistive Devices: None Review of Systems Constitutional: no fever, no chills and no anorexia Eyes: no problem reported Ear, Nose, Mouth, Throat: no problem reported Respiratory: no cough and no dyspnea Cardiovascular: no chest pain Gastrointestinal: no abdominal pain, no nausea and no vomiting Genitourinary: no dysuria Musculoskeletal: no back pain Integumentary: + lesions; no rash Neurologic: no localized weakness and no generalized weakness Psychiatric: no behavioral changes Hematologic / Lymphatic: no easy bleeding and no easy bruising Physical Exam Constitutional: WD/WN, vitals as above Eyes: PERRL, conjunctivae normal, anicteric sclerae Neck: trachea midline Respiratory: normal respiratory effort, lungs clear to auscultation Cardiovascular: RRR, no murmur, no edema Gastrointestinal (Abdomen): normal bowel sounds, soft, nontender, no hepatosplenomegaly Musculoskeletal: Head/Neck/Chest: normocephalic and head atraumatic Skin: + lesion (drained abscess cavity left chest wall) Psychiatric: Orientation: alert and oriented x 3 Results & Data Vital Signs (Past 12 Hours) Vital Signs Temp Pulse Pulse Resp BP BP Pulse Ox 01/26/23 09:55 36.8 C 71 16 109/70 98 01/26/23 09:52 36.8 C 71 16 109/70 98 01/26/23 04:11 95 H 01/26/23 04:09 123/79 01/26/23 04:09 93 H 18 98 01/26/23 01:46 36.9 C 98 H 20 148/93 H 98 O2 Del Method 01/26/23 09:55 Room Air 01/26/23 09:52 Room Air 01/26/23 04:11 01/26/23 04:09 01/26/23 04:09 Room Air 01/26/23 01:46 Room Air Diagnostic Findings CT chest diagnostic w con CLINICAL HISTORY: Left lat chest wall abscess s/p drained TECHNIQUE: Multidetector row helical CT of the chest was performed with intravenous contrast. Coronal and sagittal reformations were obtained. Automated dose lowering techniques and/or adjustment according to patient size were utilized for this exam. CT DOSE: 1236.62 mGy.cm Comparison: None available at the time of this dictation. FINDINGS: Lungs and pleura: Normal. Heart and pericardium: Heart size is normal. No pericardial effusion. Vessels: Unremarkable. Mediastinum and antonio: Unremarkable. Chest wall and lower neck: There is a 3.5 cm gas and fluid collection in the superficial left chest wall compatible with abscess. Abdomen: For findings below the diaphragm, please refer to CT of the abdomen dated the same. Bones: Degenerative changes in the thoracic spine. IMPRESSION: Left lateral chest gas and fluid collection compatible with abscess. Otherwise unremarkable.
[2023-01-26] MEDS: VANCOMYCIN HCL 1,000 MG in SODIUM CHLORIDE 0.9% 250 ML IV SCH ×2 (13:49→21:07)
--- NOTE | 2023-01-26 15:54 | Pharmacy Report ---
Pharmacy PK ABX Note - Date of Service January 26, 2023 - Assessment and Plan Assessment 22 year old F receiving vancomycin/zosyn for treatment of chest wall abscess. Pertinent microbiologic data includes: blood cultures, chest culture pending Plan Vancomycin * Loading dose: 1500 mg IV x 1 * Maintenance dose: 1000 mg IV every 8 hours * Regimen is predicted to achieve target AUC/FLORENTINO of 400-600 mg/L.hr * Trough ordered for 01/27 @ 0430 Pharmacy will continue to follow and will adjust dose/frequency as necessary. Thank you. Pharmacy has transitioned to AUC monitoring for vancomycin. AUC/FLORENTINO is the preferred PK/PD target and is associated with decreased risk of nephrotoxicity compared to traditional trough targets.
[2023-01-26] MEDS: ACETAMINOPHEN 325 MG TAB PO PRN (16:51)
--- NOTE | 2023-01-26 18:56 | XRay Report ---
XR chest 1V portable CLINICAL HISTORY: sepsis TECHNIQUE: Single frontal radiograph of the chest was obtained. Comparison: Comparison is made to chest radiograph 01/19/2023 FINDINGS: No lines and tubes are seen. The cardiomediastinal silhouette is normal. The lungs are clear. No evid ence of pleural effusion or pneumothorax. IMPRESSION: No acute abnormalities and in particular no radiographic evidence of pneumonia. ACT 112: Negative or not required by law. Electronically signed by: Gustabo Fay M.D. 01/26/2023 6:55 PM
--- NOTE | 2023-01-26 20:07 | Billing Data ---
Date of Service January 26, 2023 Coding Level of Care Code 57557 SUB INP/OBS CARE 3MIN
--- NOTE | 2023-01-26 20:07 | Billing Data ---
Date of Service January 26, 2023 Coding Level of Care Code 23230 SUB INP/OBS CARE 3MIN
[2023-01-26 20:58] LABS: Appearance Urine Clear (Clear); Bilirubin Urine Negative (Negative); Blood Urine Negative (Negative); Color Urine Yellow; Glucose Urine UA 3+ (Negative); Ketones Urine Negative (Negative); Leukocyte Esterase Urine Negative (Negative); Nitrite Urine Negative (Negative); Protein Urine Negative (Negative); Specific Gravity Urine 1.023 (1.000-1.030); Urobilinogen Urine Negative (Negative)
[2023-01-26] MEDS ORDERED: LANTUS PER UNIT CHARGE SQ SCH (21:00)
[2023-01-27] MEDS: PIPERACILLIN/TAZOBACTAM 4.5 GM in DEXTROSE 5% MINI-B 100 ML IV SCH ×2 (03:25→10:44)
[2023-01-27 04:01] LABS: Hematocrit (blood only) 32.2 % (37.0-47.0); Hemoglobin 11.2 g/dl (12.0-16.0); Mean Corpuscular Hemoglobin 30.2 pg (25.0-34.0); Mean Corpuscular Hgb Conc 34.8 g/dL (32.0-36.0); Mean Corpuscular Volume 86.8 fL (80.0-100.0); Mean Platelet Volume 9.9 fL (9.4-12.4); Platelet Count 303 K/uL (130-400); RDW Coefficient of Variation 13.8 % (11.5-14.5); RDW Standard Deviation 43.8 fL (36.4-46.3); Red Blood Count 3.71 M/uL (4.20-5.40); White Blood Count 8.45 K/ul (4.8-10.8)
[2023-01-27 04:14] LABS: Albumin Level 2.6 gm/dl (3.4-5.0); Anion Gap 5 (3-11); Blood Urea Nitrogen 8 mg/dl (6-23); Calcium 8.1 mg/dl (8.6-10.3); Carbon Dioxide 24 mmol/L (21-32); Chloride 108 mmol/L (98-107); Creatinine Clr Calc Pharmacy 184.1 ml/min; Est GFR (African American) > 150.0 ml/min; Est GFR (Non-African American) 141.2 ml/min; Glucose 108 mg/dl (70-99(Fasting)); Phosphorus 3.8 mg/dl (2.5-4.9); Potassium 3.4 mmol/L (3.5-5.1); Sodium 137 mmol/L (136-145)
[2023-01-27 04:21] LABS: Basophils # (auto) 0.06 K/uL (0.00-0.20); Basophils % (auto) 0.7 %; Eosinophils # (auto) 0.43 K/uL (0.00-0.50); Eosinophils % (auto) 5.1 %; Immature Granulocytes # (auto) 0.02 K/uL (0.01-0.20); Immature Granulocytes % (auto) 0.2 %; Lymphocytes # (auto) 4.49 K/uL (1.20-3.40); Lymphocytes % (auto) 53.1 %; Monocytes # (auto) 0.61 K/uL (0.11-0.59); Monocytes % (auto) 7.2 %; Neutrophils # (auto) 2.84 K/uL (1.40-6.50); Neutrophils % (auto) 33.7 %
[2023-01-27] MEDS ORDERED: VANCOMYCIN LEVEL ONE (04:30)
[2023-01-27] MEDS: VANCOMYCIN HCL 1,000 MG in SODIUM CHLORIDE 0.9% 250 ML IV SCH (05:48)
--- NOTE | 2023-01-27 05:51 | Billing Data ---
Date of Service January 27, 2023 Coding Level of Care Code 40514 INT INP/OBS CARE
--- NOTE | 2023-01-27 07:39 | Electrocardiogram Report ---
Test Reason : Blood Pressure : / mmHG Vent. Rate : 090 BPM Atrial Rate : 090 BPM P-R Int : 164 ms QRS Dur : 066 ms QT Int : 358 ms P-R-T Axes : 014 054 000 degrees QTc Int : 437 ms Normal sinus rhythm Low voltage QRS Septal infarct , age undetermined Abnormal ECG No previous ECGs available Confirmed by Reji Reeves ([id number]) on 01/27/2023 7:38:59 AM Referred By: REFERRED SELF Confirmed By:Reji Reeves
[2023-01-27] MEDS: INSULIN ASPART PER UNIT CHARGE SC SCH ×2 (08:10→12:21)
[2023-01-27] MEDS: ACETAMINOPHEN 325 MG TAB PO PRN (08:10)
--- NOTE | 2023-01-27 11:41 | Surgery Progress Note ---
Date of Service January 27, 2023 Assessment & Plan (1) Abscess of chest wall: Plan: drained improving on abx doing well Admission and Anticipated Discharge Date Admission Date: January 26, 2023 Subjective less pain stil a little drainage AF WBC nL Review of Systems Constitutional: no fever and no chills Respiratory: no cough and no dyspnea Cardiovascular: no chest pain Gastrointestinal: no abdominal pain Genitourinary: no dysuria Musculoskeletal: + swelling; no back pain, no neck pain and no joint pain Integumentary: + rash Neurologic: no localized weakness and no generalized weakness Psychiatric: no behavioral changes Hematologic / Lymphatic: no easy bleeding and no easy bruising Physical Exam Constitutional: WD/WN, vitals as above Respiratory: normal respiratory effort, lungs clear to auscultation Cardiovascular: RRR, no murmur, no edema Gastrointestinal (Abdomen): normal bowel sounds, soft, nontender, no hepatosplenomegaly Musculoskeletal: Head/Neck/Chest: normocephalic and head atraumatic Skin: + lesion (some erythema; draining; no fluctuance) Results & Data Vital Signs (Past 12 Hours) Vital Signs Temp Pulse Resp BP Pulse Ox Pulse Ox O2 Del Method 01/27/23 07:23 96 01/27/23 07:19 36.9 C 81 16 115/73 96 Room Air O2 Del Method 01/27/23 07:23 Room Air 01/27/23 07:19
--- NOTE | 2023-01-27 12:45 | Pharmacy Report ---
Pharmacy PK ABX Note - Date of Service January 27, 2023 - Assessment and Plan Assessment 01/27: Random level this morning 10.1, this represents a trough, although prior to steady state. Predicts low end of goal range, will adjust dose today. 22 year old F receiving vancomycin/zosyn for treatment of chest wall abscess. Pertinent microbiologic data includes: blood cultures, chest culture pending Plan Vancomycin * Loading dose: 1500 mg IV x 1 * Change to 1250 mg q8H * Regimen is predicted to achieve target AUC/FLORENTINO of 400-600 mg/L.hr * Trough ordered for 01/28 @ 1000 Pharmacy will continue to follow and will adjust dose/frequency as necessary. Thank you. Pharmacy has transitioned to AUC monitoring for vancomycin. AUC/FLORENTINO is the preferred PK/PD target and is associated with decreased risk of nephrotoxicity compared to traditional trough targets.
[2023-01-27] MEDS ORDERED: VANCOMYCIN HCL 1,250 MG in SODIUM CHLORIDE 0.9% 250 ML IV SCH (13:00)
--- NOTE | 2023-01-27 13:24 | Discharge Summary ---
Date of Service January 27, 2023 Admission HPI Per Admitting Provider Nafisa is a 22 year old female w/ PmHx of T1DM coming to the ER for swelling of her lower extremities. Patient was previously here on Saturday for rhinovirus induced diarrhea as well as DKA. She also had this area of what was thought to be cellulitis for which she already had doxycycline treatment course. Over the course of the day her anion gap closed and she was sent home with Bactrim DS for 7 days for treatment of the affected area of skin infection. She states that her symptoms had mostly gone away except for persistence of the skin infection. She also had swelling in the lower extremities that developed after discharge. The swelling subsided but earlier today she had re-swelling of the lower extremities that made her worried. She had went out drinking prior to coming to the hospital. She denies any fevers, chills, shortness of breath, chest pain, urinary or bowel symptoms. Of note patient stated that the area of the chest wall abscess was at first a pimple in that area that she popped and had d eveloped into what it is now. The area of skin infection did not get better after doxycycline nor Bactrim and has only gotten worse. Her partner in the room stated when the abscess was drained earlier the color of the pus was orange- whitish tinged. In the ER the site of skin infection was poked with a needle with pus and air leaking out, culture was taken. She was started on Vancomycin and Zosyn for the presumed abscess. CBC unremarkable, Na 131, anion gap 12, glucose 395, lactate 3.6, BNP 191, albumin 3.2. CT chest and abd/pelvis without read back yet but ~2.4cm pocket of air at the R lateral chest wall mid-axillary around the level of T7. CT A&P notable for bladder measuring almost 10cm in size. Admission Exam Per Admitting Provider Constitutional: WD/WN, vitals as above Eyes: PERRL, conjunctivae normal, anicteric sclerae Respiratory: normal respiratory effort, lungs clear to auscultation Cardiovascular: Rate/Rhythm: regular rate and regular rhythm Heart Sounds: normal S1, normal S2 and + murmur (I/ holosystolic murmur best heard at left sternal border) Lower extremity non-pitting edema from the feet to the hips bilaterally. Chest (Breasts): Additional Comments: Area of 2x2 gauze light red to orange in color with adhesive on top overlying the R lateral midaxillary chest. Gastrointestinal (Abdomen): normal bowel sounds, soft, nontender, no hepatosplenomegaly Psychiatric: A+Ox3, euthymic affect Principal Diagnosis Left lateral chest wall abscess Discharge Exam General: Alert. Oriented to person, time, and place. Afebrile. No acute distress. Eyes: pupils equal and reactive to light bilaterally, extraocular movements intact. Chest: bandage covering left lateral chest wall where drainage was performed in the ED, on evaluation, there is some drainage but no tenderness or significant erythema. Cardiac: Regular rate and rhythm, no murmurs/rubs/gallops. Respiratory: Clear to auscultation bilaterally a/p, no wheezes/rales/rhonchi. No increased work of breathing. Symmetrical chest rise. No respiratory distress. Abdomen: Soft, nontender, nondistended. Bowel sounds present. Lower Extremities: Bilateral lower extremity swelling improved compared to yesterday. No deep calf pain. Gwen's negative bilaterally. Psych: Euthymic affect. Mood and affect congruence. Regular speech rate and content. Discharge Data Allergies Allergy/AdvReac Type Severity Reaction Status Date / Time No Known Allergies Allergy Unverified 01/19/23 23:06 Consultations 01/26/23 04:21 ED Decision to Admit Stat 01/26/23 09:53 Consult General Surgery Routine Ordered Studies 01/26/23 03:14 CT abd pelvis IV con only Stat 01/26/23 03:30 CT chest diagnostic w con Stat Hospital Course (1) Abscess of chest wall: (2) Diabetes mellitus type 1: (3) Hyponatremia: (4) Localized swelling of both lower legs: Plan 22 year old female w/ past history of T1 DM admitted for chest wall abscess persistent after 2 oral antibiotics (Doxycycline and Bactrim), and bilateral LE swelling. Abscess of Left Lateral Chest Wall (Acute, stable) - WBC normal, vitals stable, patient non-toxic. - Abscess drained in ED - Wound culture growing staph. No sensitivities yet. Patient with appointment with Dr. Westfall in [facility] tomorrow. Sensitivities will be available at this time and abx therapy will be chosen then. Dose of Vancomycin and Zosyn given today prior to discharge. B/l leg swelling (Acute, uncomplicated) - Current swelling most likely due to lymphedema as a result of fluid administration from last admission - Expect this to gradually improve in the coming weeks. T1DM (Chronic, uncontrolled) - Glucose this am 108 Hgb A1c ordered -- pending - Patient with adequate basic knowledge about dosing her home insulin, but may have some inadequate postprandial dosing Not compliant at times with insulin. - Patient following maximum home BSG measurement of 240 as it was what was told to her when she was younger Discussed decreasing that maximum and dose her insulin to stay within the range of 100-180 - She is on 40U long acting insulin at home. Continue after discharge. Hyponatremia (Resolved) - This am level was 137. Patient was evaluated at bedside and found clinically and hemodynamically stable, and fit to be discharged today with close f/u with her PCP (next appt tomorrow). All questions were answered. Total Time Total Time Spent Total Time Spent (In Minutes): <30 Discharge Plan Discharge Items Patient Disposition: Home - Self-Care Reason For Visit: ABSCESS, LEG SWELLING Discharge Diagnosis: Abscess Activity: Per Instructions section Non-emergency contact: Primary Care Provider Call non-emergency contact if: your symptoms worsen and your temperature is above 101 Follow-up/Referrals: [facility] [Primary Care Provider] - Diet: Carb Count or DM1 Addtl Attending Provider Instructions: You were admitted to the hospital for due to an abscess that formed on the left side of your chest wall. During your admission, we treated you intravenous Zosyn and Vancomycin, which are antibiotics that covers a number of bacteria (empiric) while the results of your wound culture came back. Today, your culture grew a bacteria called Staphylococcus, and the microbiology lab thought this may be a particular one called Staphylococcus aureus, which may be of a subtype that is resistant to many antibiotics. Since the final results of this won't come back until tomorrow, we will be discharging you today while strongly suggesting you keep tomorrow's appointment with Dr. Westfall (details below). In this appointment, he can look into the culture's final results and order the appropriate antibiotic therapy to manage your abscess. In the meantime, before your discharge today, we will be giving you one more dose of antibiotics. With regards to your Type 1 Diabetes Mellitus, we discussed what the best p ractices to follow would be to get a better handle on your home blood sugar readings, which ultimately will decrease your risk of developing diabetes- associated complications such as heart attacks, strokes, kidney failure, vision loss, and others, which are all related to difficulty in blood passing through the smaller vessels due to it being too "sweet" (high in blood sugar). As an example to visualize this is imagining the difference in difficulty when drinking water through a straw (your vessels), and then trying to drink syrup through that same straw. This is a similar concept as to what would happen if your blood sugar is too elevated. It was suggested to base your insulin dosing on your blood sugar levels after eating rather than before meals. We gave the example that if you measure your blood sugar before your meal and base your insulin dose on that, but your meal is a chocolate cake, then it is possible that the insulin dose you previously calculated would not be enough to cover that chocolate cake. The process of checking your blood sugar before eating and 2 hours after eating is what we called "grading your work" with regards to "did you get an adequate dose of insulin to cover the spike in blood sugar?". We discussed how a continuous glucose monitor would also be very helpful in keeping a closer eye on your blood sugar without needing to prick your finger, and so would be worthwhile to consider. We advise you keep close follow up with your primary care provider, since they may help advise you about these practices and help you get good control of your blood sugar. A discharge summary will be sent to your primary care physician to ensure continuity of care. Please bring this discharge summary with you to your next office appointment so that your provider can review it at that time. Follow-up appointments: You have an appointment scheduled with Dr. Westfall tomorrow at 1pm. Please make sure to keep this appointment. Should you be unable to make this appointment, please contact the office by calling [phone]. Also, if you are unable to make it to your appointment, please call the [facility] ([phone]), ask for the hardening machine operator, and ask for the senior resident, who can also look into the culture sensitivities. Keep all your follow-up appointments as already scheduled. If you cannot make an appointment, notify your provider. Medications: Your medication list has been reviewed and reconciled upon discharge to ensure accuracy and continuity of care. An updated list of all your medications is included with your hospital discharge paperwork. Please review this list closely, and make note of any changes. If you have any issues filling these prescriptions, please call [phone] and ask to leave a message for Dr. Ceron. Take your medications as instructed; do not skip a dose of your medicines. Make sure all of your doctors know every medicine you are taking (including weqs-wpa-nuqhtvb medicines, vitamins, and supplements). Call your primary care provider before taking any new medicines (including over- the-counter medicines, vitamins, and supplements), because some of these may interact with your current medications, or may make your symptoms worse. Tell your primary care provider if you cannot afford your medications. CONTACT YOUR PRIMARY CARE PROVIDER if you experience any of the following: Worsening of symptoms Fever, chills, or fatigue Difficulty following your treatment plan, or difficulty taking medications CALL 911 OR GO TO THE EMERGENCY DEPARTMENT if you experience any of the following: Sudden, severe abdominal pain or nausea/vomiting Severe chest pain, or chest pain that radiates (moves) to your jaw or arm Sudden, severe shortness of breath or difficulty breathing Thank you for allowing us to participate in your care. Pending Studies at Discharge: No Stand-Alone Forms: [facility] Interactive, Smoking Cessation Medications and DC Order Prescriptions: Continued insulin glargine [Lantus U-100 Insulin] 100 unit/mL Solution 40 unit SUBCUT HS insulin lispro [Humalog U-100 Insulin] 100 unit/mL Solution 1 sliding scale dose SUBCUT ACHS sulfamethoxazole-trimethoprim [Bactrim DS] 800-160 mg Tablet 1 tab PO BID Qty: 14 0RF Discharge Orders: Discharge Order (Routine); Ordered 01/27/23 Ordered By: Manju Johnson/Other Patient Handouts: Nutrition for Wound Healing, Managing Type 1 Diabetes Admission Data Admit Date/Time: 01/26/23 05:05 Attending Provider: Aditya Gonzalez Admit Provider: Damion Cruz Primary Care Provider: [facility] Other Providers: Isaak Bowers ; Kb Mancuso Other Interventions: Discharge Summary Assessment (RN) Last Done: 01/27/23 15:46 Supervising Physician Co-Signing Physician Notes I personally examined the patient and verified all swann points of history and exam, discussed case, and agree with decision making with Dr Ceron Feeling better overall. Abscess on side hurting much less. Surgery pleased with her progress. Has appointment in the office with PCP tomorrow. vitals noted nad heent nc at mmm Breathing unlabored no accessory muscle use good effort. flank abscess - Feeling much betteroverall improved. I strongly suspect that source control/drainage was probably more important than any of the antibiotic coverage; and given that she was originally on doxycycline, and it is showing staph, I feel this probably underscores that source control was the main problem. We discussed the risk/benefit of multiple approaches with what to do with antibiotics, given that she is feeling good enough for discharge, and it seems needless to keep her in the hospital longer just waiting on culture resultsespecially whenever further antibiotics are largely secondary and benefit to having had things drained/source control. After extensive discussions, we all felt it most appropriate to dose her afternoon IV antibiotics, and then given that her appointment in the office is at 1:00 tomorrow, she will likely have sensitivities back on the culture by then, and rather than making a "best gas" prescription today, and having her start an antibiotic/potential side effects/etc. that could happenespecially given that by tomorrow we may have to change it again anyway, underscored by the fact that she barely seems to need further antibiotics now that we have had source controlwe all agreed most appropriate to finish out IVs today, and then have her seen in the office tomorrow to recheck the wound, make sure things are still draining/healing well, and select antibiotics based off of her sensitivities then. edema - IV fluids spilling out, then salty food intakeMovement/time anticipate improvement. uncontrolled DM1 - 01/26 had extensive discussions, expressed good understanding and appreciation. Resident Activity Tracking Resident Involvement: Resident Care Provided Care Provided: Adult Hospital Medicine
--- NOTE | 2023-01-27 18:47 | Billing Data ---
Date of Service January 27, 2023 Coding Level of Care Code 43145 IN/OBS DISCH 30 MIN/LESS
[2023-01-28 07:21] LABS: Estimated Average Glucose 301 mg/dl; Hemoglobin A1C 12.1 % (4.5-5.6)
[2023-01-28] MEDS ORDERED: VANCOMYCIN LEVEL ONE (10:00)
== END 2023-01-27 16:15 | disposition home or self-care (01) | DRG 603 ==
LOC: ED 01:39 → SUATTDRO 05:05 → 3E 05:05